=== PATIENT | female | born 1965 | race American Indian/Alaskan Native ===

== ENCOUNTER 2019-03-13 11:43 | Day surgery (SDC) | payer OTHER, SELFPAY ==
[2019-03-04 09:10] VITALS: BMI 32.8
[2019-03-13] VITALS (14 sets, daily range): BP systolic 123–151; BP diastolic 59–93; PULSE 83–106; RESP 9–23; TEMP 36–36.6; O2SAT 92–100; BMI 32.8
--- NOTE | 2019-03-13 | DI.RAD.S_ITS ---
PROCEDURE: XR LUMBAR SPINE 1V INDICATIONS: MICRODISECTOMY TECHNIQUE: 2 views of the lumbar spine were acquired. COMPARISON: None. FINDINGS: Spot fluoroscopic images demonstrating surgical instrument with tip projecting in the posterior paraspinal soft tissues at the level of L4-L5 Dictated by: Tulio Sanchez M.D. on 03/13/2019 at 18:48 Approved by: Tulio Sanchez M.D. on 03/13/2019 at 18:49
[2019-03-13] MEDS: LACTATED RINGERS 1,000 ML 42 ML IV ×2 (12:36→18:00)
[2019-03-13] MEDS: ONDANSETRON 4 MG/2 ML INJ IV ×2 (14:25→19:38)
--- NOTE | 2019-03-13 14:25 | SUR.PREOP ---
PT BECAME NAUSEATED AND C/O NOT FEELING WELL, DIAPHORETIC AND C/O FEELING HOT. BLOOD SUGAR CHECKED = 96, SPOKE WITH DR RAYMOND AND ORDER RECIEVED FOR ZOFRAN, COOL CLOTH TO FOREHEAD AND ICE PACK TO BACK OF NECK, ZOFRAN GIVEN, PT NOW STATING SHE IS FEELING BETTER.
--- NOTE | 2019-03-13 15:17 | PM.PREOP ---
Pre-operative Note Interval Note History & Physical reviewed/Exam performed by Physician: Yes Changes to H&P: No
[2019-03-13] MEDS: CEFAZOLIN 2 GM/100 ML FROZ.PIGGY IV (16:15)
--- NOTE | 2019-03-13 16:48 | SUR.OPER ---
Prone on spine table, head in foam head support, padded chest and pelvic supports, gel pad at knees, lower legs supported by pillows; nipples, genitalia and toes free of pressure, arms secured on foam padded arm boards at <90 degrees abduction. Tape over blanket at thigh secured to table.
[2019-03-13] MEDS: BUPIVACAINE 0.25% W/ EPI 30 ML VIAL INJ (16:59)
[2019-03-13] MEDS: methylPREDNISolone acet DEPO 40 MG/ML VIAL INJ (17:03)
--- NOTE | 2019-03-13 17:41 | P.OP_ITS ---
Operative Date/Time/Diagnoses Date of procedure: 03/13/19 Time of procedure: 15:42 Pre-op diagnosis: 1. L3-4, L4-5 disc herniation 2. Lumbar radiculopathy Post-op diagnosis: same Procedure & Clinicians Procedure: 1. L3-4, L4-5 microdiscectomy 2. Utilization of microsurgical technique and operating microscope Same procedure as scheduled: Yes Indications: Patient has been having chronic back pain and worsening lumbar radiculopathy. Patient failed multiple conservative management with worsening pain weakness and numbness in her lower extremity. Patient has been having difficulty performing activity of daily living. After discussing risks benefits of treatment options, patient elected proceed with surgery. Surgeon: Clemencia Davis Remedy Developer: Nora Vernon Click Yes if Unassisted: No Anesthesia Type: General Operative Notes Closure Type: primary Specimen(s): none sent Blood products transfused: none Procedure in detail: Patient was seen in the preoperative area. Risks and benefits of the surgery was discussed with the patient. Informed consent was obtained from the patient and placed in the chart. Surgical site was marked. Patient was taken to the operative room. General anesthesia was administered. Prophylactic antibiotic was given to the patient less than 30 min before the incision was made. Patient was placed into a prone position on the Navdeep table. Patient's back was then prepped and draped in the sterile fashion. Time- out was performed at this time. Using AP and lateral C-arm imaging the interval between L3-4 L4-5 was identified and marked on patient's back. A 1 inch incision 1 in from midline was made on the right side. The fascia was incised in line with skin incision. Globus MARS retractors was placed inside the incision and docked onto the L3 and L4 lamina. Using microsurgical technique and operating microscope, a L3-4 L4-5 laminotomy was performed using a Kerrison rongeur. Liagamentum flavum was resected at the site of the laminotomy. The disc space at L3-4 L4-5 was identified. Microdiscectomy was performed by incising the annulus with #11 blade. Micr ocurettes and pituitary was used to removed herniated disc fragments of disc from the epidural space. Patient was found to have paramedian disc herniation with nerve roots impingement at both levels. The impingement was fully decompressed after the microdiskectomy was completed. After the microdiskectomy was completed, the area medial lateral superior and inferior to the area of the microdiskectomy was inspected and explored using a micro curette. No other impinging structure was identified. The wound was then irrigated with sterile normal saline. 40 mg Depo-Medrol was placed into the epidural space. The deep fascia was closed with 1-0 Vicryl. The subcutaneous tissue was closed with 2-0 Vicryl. The skin was closed with 4-0 Monocryl. Patient tolerated the procedure well. There were no complications. Patient was transferred recovery room in stable condition. Complications: none Post-operative Condition: stable Disposition: PACU Plan for aftercare: Discharge to home
[2019-03-13] MEDS: fentaNYL 100 MCG/2 ML INJ 50 MCG IV ×2 (17:45→17:55)
[2019-03-13] MEDS: HYDROMORPHONE 2 MG INJ 0.25 MG IV ×8 (17:49→18:32)
[2019-03-13] MEDS: LORazepam 2 MG/ML INJ 0.5 MG IV (18:08)
--- NOTE | 2019-03-13 18:46 | SUR.PHASEI ---
bedside report given to Francis Olivera RN. pt in stable condition, vss. transferred care of pt to Francis Olivera RN at this time.
[2019-03-13] MEDS: OXYCODONE/ACETAMINOPHEN 5/325 TABLET 1 TAB PO (19:13)
--- NOTE | 2019-03-13 20:08 | SUR.PHASEII ---
Phase 2 discharge note: Transfered from PACU. Cousin at bedside. Up to bathroom to void and experienced nausea and dry heaves. Medicated with antiemetic and queze ease given with relieve at 0745. Back dressing CDI. Pain level 5/10. Denies any numbness or tingling to lower extremities. Patient states that her symptoms have improved from preop. Discharge instructions reviewed with good understanding. Discharged to home w/c to car.
== END 2019-03-13 19:00 | disposition home or self-care (01) ==
LOC: OR 11:47
PROVIDERS: Visit Provider Orthopaedic Surgery Orthopaedic Surgery of the Spine
PROC: (CPT 63030; principal; 2019-03-13 13:15)
DX: M51.16 Intervertebral disc disorders with radiculopathy, lumbar region (principal)
CPT/HCPCS: 63030; 63035; 72020; 76000; J0690; J1030; J1100; J1170; J2060; J2250; J2405; J2704; J3010